=== PATIENT | male | born 1990 | race Caucasian/White ===

== ENCOUNTER 2019-10-06 21:19 | Emergency (ER) | payer MEDICAID, SELFPAY ==
[~2019-10-06] VITALS: Ht 172.7 cm; Wt 60.0 kg
[2019-10-06 21:21] VITALS: BP 112/76
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
--- NOTE | 2019-10-06 21:41 | NUR ---
XRAY AT BEDSIDE.
[2019-10-06] MEDS ORDERED: OXYcodone/APAP 5/325MG TABLET PO ONE (22:00)
[2019-10-06] MEDS ORDERED: IBUPROFEN 600 MG TABLET PO ONE (22:00)
[2019-10-06] MEDS ORDERED: IBUPROFEN 600 MG TABLET ONE (22:12)
[2019-10-06] MEDS ORDERED: OXYcodone/APAP 5/325MG TABLET ONE (22:13)
== END 2019-10-06 22:52 ==
LOC: ED 22:45
DX: S80.02XA Contusion of left knee, initial encounter (principal); S90.32XA Contusion of left foot, initial encounter; X58.XXXA Exposure to other specified factors, initial encounter; Y93.89 Activity, other specified; Y92.89 Other specified places as the place of occurrence of the external cause; Y99.8 Other external cause status
CPT/HCPCS: 99284

== ENCOUNTER 2020-02-22 20:11 | Emergency (ER) | payer MEDICAID ==
[~2020-02-22] VITALS: Ht 172.7 cm; Wt 59.7 kg
[2020-02-22] MEDS ORDERED: MORPHINE SULFATE 4 MG/ML, 1ML ONE (20:46)
[2020-02-22] MEDS ORDERED: MORPHINE SULFATE 4 MG/ML, 1ML IVPush PRN (21:00)
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
[2020-02-22] MEDS ORDERED: ONDANSETRON 2MG/ML, 2ML ONE (21:21)
[2020-02-22] MEDS ORDERED: HYDROmorphone 1 MG/ML, 1ML INJ ONE (21:21)
[2020-02-22] MEDS ORDERED: ONDANSETRON 2MG/ML, 2ML IVPush ONE (21:30)
[2020-02-22] MEDS ORDERED: HYDROmorphone 1 MG/ML, 1ML INJ IV ONE (21:30)
[2020-02-22 23:14] VITALS: BP 126/89
== END 2020-02-22 23:22 | disposition home or self-care (01) ==
LOC: ED 20:41
DX: S20.212A Contusion of left front wall of thorax, initial encounter (principal); R07.89 Other chest pain; M94.0 Chondrocostal junction syndrome [Tietze]; Y00.XXXA Assault by blunt object, initial encounter; Y93.89 Activity, other specified; Y92.89 Other specified places as the place of occurrence of the external cause; Y99.8 Other external cause status
CPT/HCPCS: 71101; 96374; 96375; 99285; J1170; J2270; J2405